=== PATIENT | female | born 1940 | race Caucasian/White ===

== ENCOUNTER 2019-06-02 05:50 | Day surgery (SDC) | payer OTHER ==
[~2019-06-02 05:50] MED LIST: JANUMET 50-5001 EACH PO; LOSART PO; METFORMIN PO; METROPOLOL PO; SYNTH PO
[2019-06-02] MEDS ORDERED: TRAM1TAB98 PO (12:38)
[2019-06-02] MEDS ORDERED: DUI500 PO (12:38)
== END 2019-06-02 15:00 | disposition home or self-care (01) ==
LOC: CIR.AMB 05:50
DX: M71.322 Other bursal cyst, left elbow (principal)